=== PATIENT | female | born 1980 | race Caucasian/White ===

== ENCOUNTER 2020-11-04 04:24 | Emergency (ER) | payer MEDICARE ==
[~2020-11-04 04:24] MED LIST: CIPRO500 MG PO; IBUPROFEN800 MG PO; NORCO 5-325 TA1 EACH PO; ONDANSETRON ODT4 MG PO; PYRIDIUM200 MG PO; VENTOLIN HFA IN18 GM INH
[2020-11-04] MEDS ORDERED: DICLOFENAC SODI75 MG PO (05:03)
[2020-11-05] MEDS ORDERED: NORCO 5-325 TA1 EACH PO (03:41)
[2020-11-05] MEDS ORDERED: IBUPROFEN800 MG PO (03:41)
[2020-11-05] MEDS ORDERED: MEDROL 4MG DOSEP4 MG PO (03:41)
== END 2020-11-04 05:12 | disposition home or self-care (01) ==
LOC: FER 04:24
DX: S63.502A Unspecified sprain of left wrist, initial encounter (principal); I10 Essential (primary) hypertension; J45.909 Unspecified asthma, uncomplicated; F17.210 Nicotine dependence, cigarettes, uncomplicated; X58.XXXA Exposure to other specified factors, initial encounter; Y92.89 Other specified places as the place of occurrence of the external cause; Y99.0 Civilian activity done for income or pay
CPT/HCPCS: 73110

== ENCOUNTER 2020-11-05 01:13 | Emergency (ER) | payer MEDICARE, OTHER ==
[~2020-11-05 01:13] MED LIST changes: +DICLOFENAC SODI75 MG PO
[2020-11-05] MEDS ORDERED: NORCO 5-325 TA1 EACH PO (03:41)
[2020-11-05] MEDS ORDERED: IBUPROFEN800 MG PO (03:41)
[2020-11-05] MEDS ORDERED: MEDROL 4MG DOSEP4 MG PO (03:41)
== END 2020-11-05 03:58 | disposition home or self-care (01) ==
LOC: FER 01:13
DX: S64.02XA Injury of ulnar nerve at wrist and hand level of left arm, initial encounter (principal); I10 Essential (primary) hypertension; J45.909 Unspecified asthma, uncomplicated; Z88.0 Allergy status to penicillin; Z88.6 Allergy status to analgesic agent; Z88.5 Allergy status to narcotic agent; X58.XXXA Exposure to other specified factors, initial encounter; Y92.89 Other specified places as the place of occurrence of the external cause; Y99.0 Civilian activity done for income or pay
CPT/HCPCS: J1170; J7512

== ENCOUNTER 2020-12-19 11:18 | Emergency (ER) | payer MEDICARE ==
[~2020-12-19 11:18] MED LIST changes: +MEDROL 4MG DOSEP4 MG PO
[2020-12-19] MEDS ORDERED: NORCO 5-325 TA1 EACH PO (15:17)
[2020-12-19] MEDS ORDERED: PREDNISONE 20MG20 MG PO (15:17)
== END 2020-12-19 15:42 | disposition home or self-care (01) ==
LOC: FER 11:18
DX: S83.91XA Sprain of unspecified site of right knee, initial encounter (principal); I10 Essential (primary) hypertension; J45.909 Unspecified asthma, uncomplicated; W54.1XXA Struck by dog, initial encounter; Y92.009 Unspecified place in unspecified non-institutional (private) residence as the place of occurrence of the external cause
CPT/HCPCS: 73564; 73590; 73630

== ENCOUNTER 2021-01-06 11:15 | Emergency (ER) | payer OTHER, MEDICARE ==
[~2021-01-06 11:15] MED LIST changes: +PREDNISONE 20MG20 MG PO
[2021-01-06 11:58] LABS: BASOPHIL 0.6 % (0-2); EOSINOPHIL 1.6 % (0-5); HCT 45.5 % (37.0-47.0); HGB 14.8 g/dl (12.5-16.0); LYMPHOCYTE 32.8 % (15-48); MCH 30.3 pg (25.0-31.0); MCHC 32.5 g/dL (32.0-36.0); MCV 93.2 fL (78.0-100.0); MONOCYTE 3.8 % (0-12); MPV 10.4 fL (6.0-9.5); NEUTROPHIL 60.9 % (41-80); NRBC 0; PLT 276 K/uL (150-400); RBC 4.88 M/uL (4.20-5.40); RDW 13.8 % (11.5-14.0)
[2021-01-06 12:33] LABS: ALBUMIN 4.3 g/dL (3.4-5.0); BILIRUBIN - TOTAL 0.3 mg/dL (0.2-1.0); BUN/CREAT RATIO (CALC) 24.6 RATIO; CREATININE 0.61 mg/dL (0.51-0.95); GLOBULIN (CALCULATION) 3.5 g/dL; MAGNESIUM 2.1 mg/dL (1.8-2.4); POTASSIUM 3.1 mmol/L (3.5-5.1); TOTAL PROTEIN 7.8 g/dL (6.4-8.2)
[2021-01-06 12:56] LABS: BILIRUBIN NEGATIVE (NEGATIVE); BLOOD NEGATIVE Ery/uL (NEGATIVE); CLARITY CLEAR (CLEAR); COLOR YELLOW (YELLOW); GLUCOSE (U) NORMAL (NORMAL); LEUKOCYTES NEGATIVE Leu/uL (NEGATIVE); NITRITE NEGATIVE (NEGATIVE); PROTEIN NEGATIVE (NEGATIVE); UROBILINOGEN 0.2 mg/dL (0.2-1.0)
== END 2021-01-06 13:32 | disposition home or self-care (01) ==
LOC: FER 11:15
PROVIDERS: Emergency Medicine
DX: R00.2 Palpitations (principal); R20.2 Paresthesia of skin; I10 Essential (primary) hypertension; Z85.41 Personal history of malignant neoplasm of cervix uteri; Z85.43 Personal history of malignant neoplasm of ovary; Z88.0 Allergy status to penicillin; Z88.6 Allergy status to analgesic agent; Z88.5 Allergy status to narcotic agent
CPT/HCPCS: 36415; 80053; 81003; 83735; 84443; 85025; 93005

== ENCOUNTER 2021-01-27 21:18 | Emergency (ER) | payer OTHER, MEDICARE ==
[2021-01-27 22:11] LABS: BILIRUBIN NEGATIVE (NEGATIVE); BLOOD NEGATIVE Ery/uL (NEGATIVE); CLARITY HAZY (CLEAR); COLOR YELLOW (YELLOW); GLUCOSE (U) NORMAL (NORMAL); LEUKOCYTES NEGATIVE Leu/uL (NEGATIVE); NITRITE NEGATIVE (NEGATIVE); PROTEIN TRACE (LOW) mg/dL (NEGATIVE); SPECIFIC GRAVITY >=1.030 (1.001-1.030); UROBILINOGEN 0.2 mg/dL (0.2-1.0)
[2021-01-27] MEDS ORDERED: NORCO 5-325 TA1 EACH PO (22:54)
[2021-01-27] MEDS ORDERED: NORFLEX100 MG PO (22:54)
== END 2021-01-27 23:05 | disposition home or self-care (01) ==
LOC: FER 21:18
PROVIDERS: Emergency Medicine
DX: S16.1XXA Strain of muscle, fascia and tendon at neck level, initial encounter (principal); S39.012A Strain of muscle, fascia and tendon of lower back, initial encounter; I10 Essential (primary) hypertension; J45.909 Unspecified asthma, uncomplicated; F17.210 Nicotine dependence, cigarettes, uncomplicated; Z88.5 Allergy status to narcotic agent; Z88.6 Allergy status to analgesic agent; Z88.0 Allergy status to penicillin; V49.40XA Driver injured in collision with unspecified motor vehicles in traffic accident, initial encounter; Y92.410 Unspecified street and highway as the place of occurrence of the external cause
CPT/HCPCS: 72040; 81003

== ENCOUNTER 2021-05-07 03:43 | Emergency (ER) | payer OTHER, MEDICARE ==
[~2021-05-07 03:43] MED LIST changes: +NORFLEX100 MG PO
== END 2021-05-07 04:34 | disposition home or self-care (01) ==
LOC: FER 03:43
DX: S63.501A Unspecified sprain of right wrist, initial encounter (principal); F17.210 Nicotine dependence, cigarettes, uncomplicated; W19.XXXA Unspecified fall, initial encounter; Y92.009 Unspecified place in unspecified non-institutional (private) residence as the place of occurrence of the external cause
CPT/HCPCS: 73110

== ENCOUNTER 2021-10-15 05:31 | Emergency (ER) | payer OTHER, MEDICARE ==
[2021-10-15 06:14] LABS: BASOPHIL 0.6 % (0-2); EOSINOPHIL 2.7 % (0-5); HCT 44.6 % (37.0-47.0); HGB 14.6 g/dl (12.5-16.0); LYMPHOCYTE 35.5 % (15-48); MCH 30.6 pg (25.0-31.0); MCHC 32.7 g/dL (32.0-36.0); MCV 93.5 fL (78.0-100.0); MONOCYTE 5.7 % (0-12); MPV 10.1 fL (6.0-9.5); NEUTROPHIL 55.2 % (41-80); NRBC 0; PLT 280 K/uL (150-400); RBC 4.77 M/uL (4.20-5.40); RDW 13.2 % (11.5-14.0); WBC 6.7 K/uL (4.0-10.5)
[2021-10-15 06:45] LABS: BUN/CREAT RATIO (CALC) 28.6 RATIO; CREATININE 0.56 mg/dL (0.51-0.95); POTASSIUM 3.4 mmol/L (3.5-5.1)
[2021-10-15 06:50] LABS: BILIRUBIN 1+ mg/dL (NEGATIVE); BLOOD NEGATIVE Ery/uL (NEGATIVE); CLARITY CLEAR (CLEAR); COLOR YELLOW (YELLOW); GLUCOSE (U) NORMAL (NORMAL); LEUKOCYTES NEGATIVE Leu/uL (NEGATIVE); NITRITE NEGATIVE (NEGATIVE); PROTEIN NEGATIVE (NEGATIVE); SPECIFIC GRAVITY >=1.030 (1.001-1.030); UROBILINOGEN 0.2 mg/dL (0.2-1.0)
[2021-10-15] MEDS ORDERED: VIBRAMYCIN100 MG PO (07:26)
[2021-10-15] MEDS ORDERED: PREDNISONE 20MG20 MG PO (07:26)
== END 2021-10-15 07:53 | disposition home or self-care (01) ==
LOC: FER 05:31
PROVIDERS: Internal Medicine
DX: J20.9 Acute bronchitis, unspecified (principal); F17.210 Nicotine dependence, cigarettes, uncomplicated; Z88.0 Allergy status to penicillin; Z88.5 Allergy status to narcotic agent; Z88.8 Allergy status to other drugs, medicaments and biological substances
CPT/HCPCS: 36415; 71045; 80048; 81003; 84145; 85025